=== PATIENT | female | born 1990 | race Caucasian/White ===

== ENCOUNTER 2016-10-29 18:53 | Emergency (ER) | payer OTHER ==
[~2016-10-29] VITALS: Ht 165.1 cm; Wt 63.5 kg
--- NOTE | ~2016-10-29 | CT4 ---
[facility] A Service [facility] RADIOLOGY TEXT RESULTS PATIENT: AARTI SANTIAGO LOCATION: SED : [birth year] UNIT #: [id number] AGE: [address]: NIK BARROS SEX: F ORDER DR: [id number] [address] [address] [id number] MR#: [id number] Acc #: [id number] NAME: AARTI SANTIAGO. : 1990 SEX: F STUDY DATE/TIME: 10/29/2016 21:23 UNIT: SED ROOM: STUDY DESCRIPTION: CT Abd and Pelv Wo Cont Attending Physician: Nik Barros Ordering Physician: Nik Barros Primary Care Physician: Rodrick Baird M.D. MEDICAL IMAGING REPORT This report is preliminary unless electronic signature is present. EXAM CT abdomen and pelvis. INDICATIONS Right flank pain for [address] of the abdomen and pelvis without contrast. Coronal and sagittal reconstructions were obtained. This CT exam was performed with one or more of the following radiation dose reduction techniques: Automatic exposure control, adjustment of mA and/or kV according to patient size, and iterative reconstruction. COMPARISON None available. FINDINGS No urinary calculi. No hydronephrosis. Noncontrast evaluation of remaining solid abdominal organs are within normal limits. The gallbladder is contracted. The bowel is not dilated. The appendix is normal. Pelvis: The patient has an IUD. The uterus is anteverted and the IUD is flipped with the lower uterine segment, pointing towards the fundus. Ovaries are unremarkable. There is no free fluid. Bladder is unremarkable. No acute osseous abnormalities. IMPRESSION 1. No acute findings in the abdomen and pelvis. [facility] A Service [facility] RADIOLOGY TEXT RESULTS PATIENT: AARTI SANTIAGO LOCATION: SED : 92 UNIT #: [id number] AGE: [address]: NIK BARROS SEX: F ORDER DR: 2. Rotated IUD. The lower uterine segment of the IUD is flipped into the uterine fundus. Dictated by... Freddy Pearson M.D. THIS IS AN ELECTRONICALLY VERIFIED REPORT Freddy Pearson M.D. at 10/30/2016 7:52 PM JONNIE/geovanny TD: 10/30/2016 19:09 JOB #: [id number] MEDICAL IMAGING REPORT Page 1 of 1
[~2016-10-29 18:53] MED LIST: ALBUTEROL17 GM INH; BENZONATATE PO; BIRTH CONTROL PILL; BIRTH CONTROL PILL PO; FLEXERIL10 MG PO; MEDROL DOSEPAK4 MG DOB; MOTRIN600 MG PO; MUCINEX DM1 TAB.SR . PO; NO MEDICATIONS; PHENERGAN12.5 MG DOB; ROBAXIN 750750 M1 PO; TORADOL10 MG PO; ZITHROMAX PO
[2016-10-29 20:55] LABS: URINE SOURCE CLEAN CATCH
[2016-10-29 20:57] LABS: URINE APPEARANCE HAZY; URINE BILIRUBIN NEG (NEG); URINE BLOOD NEG (NEG); URINE COLOR YELLOW; URINE GLUCOSE NEG (NORM); URINE KETONE NEG (NEG); URINE LEUKOCYTE ESTERASE NEG (NEG); URINE NITRATE NEG (NEG); URINE PH 7.5 (5-8); URINE PROTEIN NEG (NEG); URINE SPECIFIC GRAVITY 1.015 (1.003-1.035)
[2016-10-29 20:58] LABS: MICRO INDICATED? NO
[2016-10-29 21:44] LABS: BASOPHIL# 0.1 X10e3 (0-0.3); BASOPHIL% 0.7 % (0-2.5); EOSINOPHIL# 0.5 X10e3 (0-0.7); EOSINOPHIL% 4.9 % (0.0-7.0); HEMATOCRIT 42.7 % (35.0-45.0); HEMOGLOBIN 14.6 gm/dL (12.0-16.0); LYMPHOCYTE# 3.3 X10e3 (1.0-3.5); LYMPHOCYTE% 34.2 % (17.0-45.0); MEAN CELL VOLUME 94.8 FL (83-96); MEAN CORPUSCULAR HEMOGLOBIN 32.5 PG (28-34); MEAN CORPUSCULAR HGB CONC 34.3 g/dL (30-36); MEAN PLATELET VOLUME 8.7 FL (6.5-11.5); MONOCYTE# 0.5 X10e3 (0-1.0); MONOCYTE% 5.6 % (3.0-12.0); NEUTROPHIL# 5.3 X10e3 (1.5-7.1); NEUTROPHIL% 54.6 % (40-75); PLATELET COUNT 259 X10e3 (140-420); RED CELL DISTRIBUTION WIDTH 12.9 % (11.0-15.5); WHITE BLOOD COUNT 9.7 X10e3 (4.0-10.5)
[2016-10-29 21:48] LABS: DIFF IND NO
[2016-10-29 22:01] LABS: ALBUMIN SERUM 4.9 g/dL (3.5-5.0); BILIRUBIN,TOTAL 0.5 mg/dL (0.2-2.0); CALCIUM SERUM 9.6 mg/dL (8.4-10.2); GLOM FILT RATE Estimated 78.8 mL/min (>60); POTASSIUM 3.3 mmol/L (3.5-5.1); PROTEIN TOTAL SERUM 7.7 g/dL (6.0-8.3)
[2016-11-02 20:43] LABS: CHLAMYDIA TRACH Not Detected (Not Detected); N GONOR Not Detected (Not Detected)
== END 2016-10-30 00:34 | disposition home or self-care (01) ==
LOC: SED 18:53
PROVIDERS: Nurse Practitioner
DX: R10.31 Right lower quadrant pain (principal); R10.32 Left lower quadrant pain; F17.210 Nicotine dependence, cigarettes, uncomplicated; Z88.0 Allergy status to penicillin; Z91.040 Latex allergy status
CPT/HCPCS: 36415; 74176; 80053; 81003; 84703; 85025; 87210; 87491; 87591; 87808; 87905; 96374; 99284; J1885